=== PATIENT | male | born 1995 | race Two or more races ===

== ENCOUNTER 2024-02-14 15:15 | Emergency (ER) | payer MEDICAID, OTHER ==
[~2024-02-14] VITALS: Ht 180.3 cm; Wt 84.9 kg
[2024-02-14] MEDS ORDERED: NAPR-746 PO (16:17)
[2024-02-14] MEDS ORDERED: PRED20TA2 PO (16:17)
[2024-02-14 16:27] VITALS: BP 131/88; PULSE 84; RESP 16; TEMP 97.9; O2SAT 97
[2024-02-14] MEDS ORDERED: KETOROLAC TROMETH 60MG/2ML VIAL IM ONE (16:30)
== END 2024-02-14 16:29 | disposition home or self-care (01) ==
LOC: ER 15:15
DX: G57.02 Lesion of sciatic nerve, left lower limb (principal); M54.50 Low back pain, unspecified; Z79.899 Other long term (current) drug therapy